=== PATIENT | female | born 1985 | race Caucasian/White ===

== ENCOUNTER 2022-05-27 00:22 | Day surgery (SDC) | payer BC, SELFPAY ==
[2022-05-27 11:28] VITALS: BP 129/83; PULSE 76; RESP 16; TEMP 36.3; O2SAT 100
--- NOTE | 2022-05-27 11:35 | PM.HPGS ---
History of Present Illness History of Present Illness Consent: Risks, benefits, and alternatives have been discussed and questions answered. Patient agrees to proceed with procedure. Chief complaint: dysphagia Narrative: Marissa Herrera is a 36 year old female with dysphagia for 2 years, sometimes choking sensation and eating small pieces, never had EGD. PPI did not help Review of Systems Constitutional: Constitutional: Denies headache(s) and Denies weakness Eyes: Eyes: Denies blurry vision ENT: Reports Normal hearing present, Denies headache(s) and Denies neck pain Cardiovascular: Cardiovascular: Denies chest pain and Denies dyspnea Respiratory: Respiratory: Denies dyspnea Gastrointestinal: Gastrointestinal: Reports no additional gastrointestinal complaints Genitourinary: Genitourinary: Denies dysuria Musculoskeletal: Musculoskeletal: Denies neck pain Integumentary/Breasts: Skin/Breast: Denies dry skin Neurologic: Reports Normal hearing present, Denies headache(s) and Denies weakness Psychiatric: Psychiatric: Denies anxiety Endocrine: Endocrine: Denies change in body appearance Hematologic/Lymphatic: Hematologic/Lymphatic: Denies easy bleeding Allergic/Immunologic: Allergic/Immunologic: Denies urticaria PMFSH Family History Family History Father Diabetes mellitus Mother Cancer Depression Anxiety Social History Social History Smoking status: Former smoker Tobacco type: cigarettes Alcohol intake: current Drinks per week: 1 Alcohol use details: glass of wine at night Substance use: current Substance use type: marijuana Living arrangements: with family Spiritual care concerns: No Meds Home Medications and Allergies Home Medications Medication Instructions Recorded Confirmed Type bupropion HCl 300 mg 24 hr tablet, 300 mg PO QAM #90 tabs 03/11/22 05/27/22 Rx extended release gabapentin 100 mg capsule 100 mg PO .COMPLEX #90 caps 03/11/22 05/27/22 Rx Allergies Allergy/AdvReac Type Severity Reaction Status Date / Time prednisone AdvReac Other Verified 05/27/22 11:27 Vital Signs Vital Signs - 24 hr 05/27/22 11:28 Temperature 97.3 F L Pulse Rate 76 Respiratory Rate 16 Blood Pressure 129/83 Pulse Oximetry 100 Oxygen Delivery Room Air Exam Const: General: comfortable and no acute distress HENMT: Face/Nose/Sinus: Normal nares present Eyes: General: appearance normal, both eyes and all related structures Neck: Neck: no JVD Resp: Auscultation: clear to auscultation bilaterally Cardio: Rate: regular rate Rhythm: regular rhythm GI: Inspection: non-distended GI Palp: Yes Soft to palpation Skin: General skin exam: normal color Neuro: General: gait normal Speech: normal speech Extrem: General: normal to inspection Psych: Mental Status: mental status grossly normal Assessment and Plan Assessment and plan (1) Dysphagia: Code(s): R13.10 - Dysphagia, unspecified Status: Acute Assessment and Plan: egd with bx
[2022-05-27] MEDS: LACTATED RINGERS 1,000 ML 150 ML IV CONT (11:37)
--- NOTE | 2022-05-27 11:53 | WPDANESEPPF ---
Anes - Initial Pre Proc Eval Procedure: Operation Date: 05/27/22 12:30 Proposed Procedures p Esophagogastroduodenoscopy EGD - Eladio Eaton MD Date/Time: 05/27/22 11:53 Surgeon: Eladio Eaton MD Pre Op Diagnosis: dysphagia Patient Data Age: 36 Gender: F Height: 1.7 m Weight: 66.8 kg Last Vital Signs Temp 97.3 F L 05/27/22 11:28 Pulse 76 05/27/22 11:28 Resp 16 05/27/22 11:28 BP 129/83 05/27/22 11:28 Pulse Ox 100 05/27/22 11:28 O2 Del Method Room Air 05/27/22 11:28 Allergies Allergy/AdvReac Type Severity Reaction Status Date / Time prednisone AdvReac Other Verified 05/27/22 11:27 Home Medications Medication Instructions Recorded Confirmed Type bupropion HCl 300 mg 24 hr tablet, 300 mg PO QAM #90 tabs 03/11/22 05/27/22 Rx extended release gabapentin 100 mg capsule 100 mg PO .COMPLEX #90 caps 03/11/22 05/27/22 Rx Patient hx anesthesia problems: none Family hx anesthesia problems: none Results Review: All pre-operative results and documents have been reviewed as part of the pre-operative evaluation. [facility] Family History Family History Father Diabetes mellitus Mother Cancer Depression Anxiety Social History Social History Smoking status: Former smoker Tobacco type: cigarettes Alcohol intake: current Drinks per week: 1 Alcohol use details: glass of wine at night Substance use: current Substance use type: marijuana Living arrangements: with family Spiritual care concerns: No Anes - Eval Final PreProcedure Day of Procedure 05/27/22 11:53 Patient weight: normal Heart: regular rate and rhythm Lungs: clear to auscultation Airway: Mallampati scale class II Neurological: alert and oriented Last oral intake: >/= 8 hours ASA classification: II Emergent: no Anesthetic plan: proceed Anesthesia type and monitoring: general GIVS and standard monitoring Results Review: All pre-operative results and documents have been reviewed as part of the pre-operative evaluation. Informed Consent: The patient's anesthetic plan and its attendant risks and benefits were discussed with the patient/family/POA. Questions were solicited and answers provided to the satisfaction of the patient/family/POA.
[2022-05-27 12:13] VITALS: BP 115/89; PULSE 92; RESP 25; O2SAT 100
[2022-05-27 12:23] VITALS: BP 121/86; PULSE 82; RESP 17; O2SAT 97
[2022-05-27 12:33] VITALS: BP 132/72; PULSE 85; RESP 18; O2SAT 98
== END 2022-05-27 12:42 | disposition home or self-care (01) ==
PROVIDERS: PCP Emergency Medicine; Visit Provider Internal Medicine Gastroenterology
PROC: 0DJ08ZZ Inspection of Upper Intestinal Tract, Via Natural or Artificial Opening Endoscopic (ICD-10-PCS; CPT 43235; principal; 2022-05-27 12:30)
DX: R13.10 Dysphagia, unspecified (principal); K22.2 Esophageal obstruction; K44.9 Diaphragmatic hernia without obstruction or gangrene; Z87.891 Personal history of nicotine dependence
CPT/HCPCS: 43239; 43249; 88305; C1726; J2704; J7120

== ENCOUNTER 2022-08-15 12:37 | Emergency (ER) | payer BC, SELFPAY ==
--- NOTE | ~2022-08-15 | CT_ITS ---
EXAMINATION: CT facial bones wo con DATE: 08/15/2022 18:07 INDICATION: head injury . TECHNIQUE: Computed tomography (CT) of the facial bones and maxillofacial region was performed withou t intravenous contrast. Automated exposure control and iterative reconstruction technique were employ ed. The dose-length product was 275.12 mGy-cm. COMPARISON: None. FINDINGS: Soft Tissues: Soft tissue swelling over the left cheek. Facial bones: No acute fracture. No lytic or blastic process. Eyes: The globes are intact. The soft tissue planes of the orbits are maintained. Paranasal Sinuses: The visualized aerated spaces are clear. Foreign Bodies: No radiopaque foreign bodies. Other Findings: None. IMPRESSION: No evidence of acute facial bone fracture. Reviewed, dictated and finalized at location K. MENT REVIEWER
--- NOTE | ~2022-08-15 | CT_ITS ---
EXAMINATION: CT brain wo con DATE: 08/15/2022 18:07 INDICATION: head injury . TECHNIQUE: Computed tomography (CT) of the head was performed without intravenous contrast. The mA wa s adjusted according to patient size. Iterative reconstruction technique was employed. The dose-lengt h product was 605.33 mGy-cm. COMPARISON: None. FINDINGS: No acute intracranial hemorrhage or extra-axial fluid collection. No hydrocephalus, mass, or herniation. No acute ischemic infarct. Unremarkable dural venous sinus attenuation. No acute osseous abnormality. The aerated spaces are clear. IMPRESSION: No acute intracranial process. Reviewed, dictated and finalized at location K. N WINDER
[2022-08-15 12:43] VITALS: BP 149/71; PULSE 75; RESP 16; TEMP 36.7; O2SAT 100
--- NOTE | 2022-08-15 17:51 | ED.HEATRA ---
HPI - Head Injury General Chief complaint: Head Injury Stated complaint: facial injury Time Seen by Provider: 08/15/22 17:41 Source: patient Mode of arrival: ambulatory Limitations: no limitations History of Present Illness HPI Narrative: This is a 37 year old female that presents to the ER after a head injury yesterday with lightheadedness. Reports she was cleaning out her closet and a safe fell and hit her in the face. She believes she lost consciousness. Reports today she has been experiencing headaches and lightheadedness. Reports bruising to the left lower eyelid. Denies vision changes, vomiting, numbness or weakness. Related Data Allergies Allergy/AdvReac Type Severity Reaction Status Date / Time prednisone AdvReac Other Verified 08/05/22 09:30 Review of Systems Review of Systems: CONSTITUTIONAL: Denies fever EYES: Denies visual changes GASTROINTESTINAL: Denies vomiting NEUROLOGIC: Reports headache. Denies numbness, or weakness. All systems reviewed & are unremarkable except as noted in HPI and below PMFSH Past Medical History Medical History Eosinophilic esophagitis Esophageal ring Family History Family History Father Diabetes mellitus Mother Cancer Depression Anxiety Social History Social History (Updated 08/05/22 @ 09:31 by NANCY Blake) Smoking status: Former smoker Tobacco type: cigarettes Alcohol intake: current Drinks per week: 1 Alcohol use details: glass of wine at night Substance use: current Substance use type: marijuana Lack of Transportation: No Lack of Food: Never True Current Housing: I Have Housing Concerned About Future Housing: No Difficulty Paying Gas/Electric Bills: No Difficulty Paying for Meds: No Currently Unemployed: No Education: Associate Degree Difficulty w/ Childcare or Family Care: No Living arrangements: with family Occupation/Education: occupation Spiritual care concerns: No Exam Narrative: GENERAL: Well-appearing, well-nourished, and in no acute distress. HEAD: Normocephalic. Mild bruising noted below the left eye EYES: PERRLA and EOMI. ENT: Nares clear, no rhinorrhea or epistaxis. Mucous membranes moist. Oropharynx without tonsillar hypertrophy exudate or other lesions. Bilateral TMs pearly loyola non-bulging NECK: Supple. No adenopathy or masses. No midline spinal tenderness CHEST: Clear to auscultation. No respiratory distress. No wheezes rales or rhonchi HEART: Regular rate and rhythm. No murmur heard. Normal peripheral pulses. EXTREMITIES: Normal range of motion. No edema. Strength equal in bilateral upper extremities SKIN: Warm, dry, no rash. NEURO: No focal deficits. Alert and oriented x3. Cranial nerves II through XII grossly intact. Normal gait PSYCH: Normal mood and affect Course Course Emergency Course: Patient updated on workup and agrees with plan of care Vital Signs Vital signs: Vital Signs Temperature 98.0 F 08/15/22 12:43 Pulse Rate 75 08/15/22 12:43 Respiratory Rate 16 08/15/22 12:43 Blood Pressure 149/71 H 08/15/22 12:43 Pulse Oximetry 100 08/15/22 12:43 Oxygen Delivery Room Air 08/15/22 12:43 Temperature 98.0 F 08/15/22 12:43 Pulse Rate 75 08/15/22 12:43 Respiratory Rate 16 08/15/22 12:43 Blood Pressure 149/71 H 08/15/22 12:43 Pulse Oximetry 100 08/15/22 12:43 Oxygen Delivery Room Air 08/15/22 12:43 MDM - Head Injury MDM Narrative Medical decision making narrative: Patient presents to the emergency department after a head injury yesterday with lightheadedness and headaches. Patient is neurologically intact. CT scan of the brain and facial bones without acute findings. She was instructed on care of concussion. She is to follow-up with her primary care provider. She was given warnings to return to the ER Differential Diagnosis
[2022-08-15 18:36] VITALS: BP 125/61; PULSE 87; RESP 16; O2SAT 100
== END 2022-08-15 18:43 | disposition home or self-care (01) ==
LOC: ANHED 18:40
PROVIDERS: Emergency Provider Physician Assistant; PCP Emergency Medicine
DX: S00.83XA Contusion of other part of head, initial encounter (principal); Z87.891 Personal history of nicotine dependence; W20.8XXA Other cause of strike by thrown, projected or falling object, initial encounter
CPT/HCPCS: 70450; 70486; 99284

== ENCOUNTER 2022-11-28 12:47 | Outpatient (CLI) | payer BC, SELFPAY ==
--- NOTE | ~2022-11-28 | MR_ITS ---
MRI of the cervical spine Clinical History: Radiculopathy Technique: Axial T2-weighted and gradient images, and sagittal T1-weighted, T2-weighted, and STIR samantha ges were acquired. Findings: There is no fracture or subluxation of the cervical spine. Vertebral bodies maintain normal height and alignment. No suspicious bone marrow signal abnormality seen. Mild diffuse T1 hypointensi ty could reflect underlying anemia. At C2-C3, there is no disc bulge or herniation. No spinal canal stenosis, cord compression, or neural foraminal narrowing. At C3-C4, there is no disc bulge or herniation. No spinal canal stenosis, cord compression, or neural foraminal narrowing. At C4-C5, there is no significant disc bulge or herniation. No spinal canal stenosis, cord compressio n, or neural foraminal narrowing. At C5-C6, there is minimal disc bulge. No spinal canal stenosis or cord compression. There is probabl e minimal bilateral neural foraminal narrowing. At C6-C7, there is no significant disc bulge or herniation. No spinal canal stenosis, cord compressio n, or neural foraminal narrowing. No abnormal signal seen in the spinal cord. Paravertebral soft tissues are unremarkable. Impression: Minimal degenerative spondylosis, as detailed above. Reviewed, dictated and finalized at location . Impression: Minimal degenerative spondylosis, as detailed above.
--- NOTE | ~2022-11-28 | MR_ITS ---
MRI of the brain and internal auditory canals Clinical History: Dizziness, tinnitus, headache Technique: Axial and sagittal T1-weighted images were acquired. These were followed by axial T2-weigh jodie, diffusion weighted, gradient, and FLAIR images. Coronal thin cut T1-weighted and T2-weighted samantha ges were acquired through the internal auditory canals. Axial thin cut T1-weighted images were also a cquired through the internal auditory canals. Findings: There is no abnormal signal in the brain parenchyma. No acute infarct, intracranial hemorrh age, or mass lesion identified. Ventricles and subarachnoid spaces are unremarkable. Orbits are unremarkable. Paranasal sinuses and m astoid air cells are clear. 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 Remaining intracranial flow v oids appear intact. Sagittal midline structures are intact. No abnormal mass lesion appreciated at the internal auditory canals or cerebellopontine angle regions . IMPRESSION: No significant abnormality identified. Postcontrast imaging would be more sensitive for small acousti c neuroma, and can be pursued as indicated. Reviewed, dictated and finalized at location M. IMPRESSION: No significant abnormality identified. Postcontrast imaging would be more sensi tive for small acoustic neuroma, and can be pursued as indicated.
== END 2022-11-28 12:48 ==
LOC: GOSHIMG 12:48
PROVIDERS: PCP Nurse Practitioner Family; Visit Provider Nurse Practitioner Family
DX: R51.9 Headache, unspecified (principal); R42 Dizziness and giddiness; H93.13 Tinnitus, bilateral; M47.22 Other spondylosis with radiculopathy, cervical region
CPT/HCPCS: 70551; 72141

== ENCOUNTER 2023-01-13 15:59 | Outpatient (CLI) | payer BC, SELFPAY | END 2023-01-13 16:00 | disposition home or self-care (01) | LOC: ANHGOSHLAB 16:00 | PROVIDERS: PCP Family Medicine; Visit Provider Nurse Practitioner Family | DX: N92.6 Irregular menstruation, unspecified (principal) | CPT/HCPCS: 36415; 84702 ==

== ENCOUNTER 2023-01-25 12:42 | Outpatient (CLI) | payer BC, SELFPAY ==
--- NOTE | ~2023-01-25 | US_ITS ---
EXAMINATION: US OB <= 14 weeks fetus DATE: 01/25/2023 13:16 INDICATION: Establish dating of during first trimester TECHNIQUE: Real-time pelvic ultrasound utilizing both a transvaginal and transabdominal probe was pe rformed. The interpreting radiologist was not present for the study. COMPARISON: None. FINDINGS: The uterus measures 9.2 x 6.3 x 5.3 cm. There is an intrauterine gestational sac. A yolk sac and fet al pole are identified. The crown rump length is measured by the technologist is 1.5 cm, which correl ates with an estimated gestational age of 7 weeks and 6 days. This measurement does not include what appears to represent the head but which is indicated CT [place] sac by the starch treating assistant. Remeasurem ent of the crown-rump length including what is likely the head yields a crown-rump length of 22 mm which correlates with an estimated gestational age of 8 weeks and 6 days. heart motion is i dentified measuring 171 beats per minute (bpm) by M-mode Doppler. The left and right ovaries are not visualized. IMPRESSION: 1. Single living fetus with heart rate of 171. 2. Gestational age by ultrasound of 8 weeks 6 day(s) with ultrasound estimated date of delivery (YARED ) of 08/31/2023. See discussion above regarding the crown-rump length measurement. Could consider repe at imaging for more definitive assessment. Reviewed, dictated and finalized at location A. IMPRESSION: 1. Single living fetus with heart rate of 171. 2. Gestational age by ultrasound of 8 weeks 6 day(s) with ultrasound estimated date of delivery (YARED) of 08/31/2023. See discussion above regarding the crown- rump length measurement. Could consider repeat imaging for more definitive asse ssment.
== END 2023-01-25 12:43 ==
LOC: GOSHIMG 12:43
PROVIDERS: PCP Nurse Practitioner Family; Visit Provider Student in an Organized Health Care Education/Training Program
DX: N94.89 Other specified conditions associated with female genital organs and menstrual cycle (principal)
CPT/HCPCS: 76801

== ENCOUNTER 2023-01-25 15:44 | Outpatient (CLI) | payer BC, SELFPAY ==
[2023-01-25 19:27] LABS: Basophils Absolute Auto 0.1 K/mm3 (0.0-0.1); Basophils Percent Auto 0.5 % (0.2-1.2); Eosinophils Absolute Auto 0.1 K/mm3 (0-0.3); Eosinophils Percent Auto 0.4 % (0-4.4); Hematocrit 39.8 % (37.0-47.0); Hemoglobin 13.4 g/dL (12.0-15.0); Immature Granulocyte Absolute 0.07 K/mm3 (0.00-0.031); Immature Granulocyte Percent A 0.5 % (0-0.5); Lymphocytes Absolute Auto 2.86 K/mm3 (0.9-3.2); Lymphocytes Percent Auto 20.8 % (18.3-44.2); Mean Corpuscular HGB Conc 33.7 g/dl (32-36); Mean Corpuscular Hemoglobin 29.9 pg (26-34); Mean Corpuscular Volume 88.8 fl (80-100); Monocytes Absolute Auto 0.6 K/mm3 (0.1-0.6); Monocytes Percent Auto 4.4 % (2.6-8.5); Neutrophils Absolute Auto 10.1 K/mm3 (1.3-6.7); Neutrophils Percent Auto 73.4 % (45.5-73.1); Platelet Count Result 361 k/mm3 (150-375); Red Blood Count 4.48 M/mm3 (4.2-5.4); Red Cell Distribution Width 11.9 % (11.5-14.5); White Blood Count 13.7 K/mm3 (4.5-10.0)
[2023-01-25 20:42] LABS: Hepatitis B Surface Antigen Negative (Negative)
[2023-01-25 21:15] LABS: HIV 1/2 Ab P24 Ag Result Negative (Negative)
[2023-01-26 09:16] LABS: Rapid Plasma Reagin Non-Reactive (NonReactive)
== END 2023-01-25 15:45 | disposition home or self-care (01) ==
PROVIDERS: PCP Nurse Practitioner Family; Visit Provider Student in an Organized Health Care Education/Training Program
DX: N94.89 Other specified conditions associated with female genital organs and menstrual cycle (principal)
CPT/HCPCS: 36415; 84702; 85025; 86592; 86644; 86703; 86747; 86762; 86787; 86850; 86900; 86901; 87077; 87086; 87186; 87340; G0432

== ENCOUNTER 2023-06-17 11:01 | Outpatient (CLI) | payer BC, SELFPAY ==
[2023-06-17 12:19] LABS: Basophils Absolute Auto 0.1 K/mm3 (0.0-0.1); Basophils Percent Auto 0.4 % (0.2-1.2); Eosinophils Absolute Auto 0.1 K/mm3 (0-0.3); Eosinophils Percent Auto 0.7 % (0-4.4); Hematocrit 37.2 % (37.0-47.0); Hemoglobin 12.3 g/dL (12.0-15.0); Immature Granulocyte Absolute 0.26 K/mm3 (0.00-0.031); Immature Granulocyte Percent A 2.1 % (0-0.5); Lymphocytes Absolute Auto 1.84 K/mm3 (0.9-3.2); Mean Corpuscular HGB Conc 33.1 g/dl (32-36); Mean Corpuscular Volume 87.7 fl (80-100); Mean Platelet Volume 8.7 fl (7.4-10.4); Monocytes Absolute Auto 0.5 K/mm3 (0.1-0.6); Monocytes Percent Auto 4.1 % (2.6-8.5); Neutrophils Absolute Auto 9.5 K/mm3 (1.3-6.7); Neutrophils Percent Auto 77.7 % (45.5-73.1); Platelet Count Result 255 k/mm3 (150-375); Red Blood Count 4.24 M/mm3 (4.2-5.4); White Blood Count 12.2 K/mm3 (4.5-10.0)
[2023-06-17 12:29] LABS: Glucose 1 Hour PP 50gm Dose 139 mg/dL
[2023-06-17 13:08] LABS: HIV 1/2 Ab P24 Ag Result Negative (Negative)
== END 2023-06-17 11:02 | disposition home or self-care (01) ==
LOC: ANHLAB 11:04
PROVIDERS: PCP Nurse Practitioner Family; Visit Provider Student in an Organized Health Care Education/Training Program
DX: Z34.90 Encounter for supervision of normal pregnancy, unspecified, unspecified trimester (principal); Z3A.00 Weeks of gestation of pregnancy not specified
CPT/HCPCS: 36415; 82947; 85025; 86703; G0432

== ENCOUNTER 2023-06-28 08:19 | Outpatient (CLI) | payer BC, SELFPAY ==
[2023-06-28 08:48] LABS: Glucose Fasting Gestational 100 mg/dL (>/=95)
[2023-06-28 10:36] LABS: Glucose 1 Hour Gest 143 mg/dL (>/=180)
[2023-06-28 11:19] LABS: Glucose 2 Hour Gest 148 mg/dL (>/= 155)
[2023-06-28 12:17] LABS: Glucose 3 Hour Gest 108 mg/dL (>/=140)
== END 2023-06-28 08:20 | disposition home or self-care (01) ==
LOC: ANHLAB 08:21
PROVIDERS: PCP Nurse Practitioner Family; Visit Provider Student in an Organized Health Care Education/Training Program
DX: O99.810 Abnormal glucose complicating pregnancy (principal); Z3A.00 Weeks of gestation of pregnancy not specified
CPT/HCPCS: 36415; 82951; 82952

== ENCOUNTER 2023-07-16 17:21 | Observation (INO) | payer BC, SELFPAY ==
[2023-07-16 17:08] VITALS: BP 134/92; PULSE 114; RESP 15; TEMP 36.4; O2SAT 100
--- NOTE | 2023-07-16 17:20 | ED.FALL ---
HPI - Fall General Chief Complaint: Fall Stated Complaint: 7 months preg - fall Time Seen by Provider: 07/16/23 17:09 History of Present Illness HPI Narrative: 38-year-old female presenting to the emergency department for evaluation after having a ground level fall. Patient reports she is approximately 7 months and follows up with Dr. Oglesby. Patient reports approximately 30 minutes prior to arrival she was crossing the street when she tripped over a curb and landed on her knees hands and on her abdomen. Patient felt that she was having decreased movement. Shortly after arrival to the emergency department patient had a bedside ultrasound showing active movement. Patient denies any leaking of vaginal fluids and denies any vaginal bleeding. Patient denies striking head denies any loss of consciousness Related Data Home Medications Medication Instructions Recorded Confirmed escitalopram oxalate 5 mg tablet 5 mg PO 02/21/23 07/12/23 escitalopram oxalate 10 mg tablet 10 mg PO DAILY 04/19/23 07/12/23 aspirin 81 mg tablet,delayed 81 mg PO DAILY 05/17/23 07/12/23 release (Adult Low Dose Aspirin) vits no.126-ferrous fum tablet PO 05/17/23 07/12/23 28 mg iron-folic acid 800 mcg tablet (Classic ) Allergies Allergy/AdvReac Type Severity Reaction Status Date / Time prednisone AdvReac Mild Didn't Verified 06/14/23 14:01 like taking it Review of Systems Review of Systems: All systems reviewed & are unremarkable except as noted in HPI and below PMFSH Past Medical History Medical History (Updated 07/16/23 @ 17:28 by Joaquin Leigh MD) Abnormal glucose tolerance in Eosinophilic esophagitis Esophageal ring Suppression of menses Family History Family History Father Diabetes mellitus Mother Cancer Depression Anxiety Social History Social History Social History: No current alcohol intake or substance use since test resulted positive 01/13/23 Years smoked: 8 Smoking status: Former smoker Tobacco type: cigarettes Alcohol intake: current Drinks per week: 1 Alcohol use details: glass of wine at night Substance use: current Substance use type: marijuana Lack of Transportation: No Lack of Food: Never True Current Housing: I Have Housing Concerned About Future Housing: No Difficulty Paying Gas/Electric Bills: No Difficulty Paying for Meds: No Currently Unemployed: No Education: Associate Degree Difficulty w/ Childcare or Family Care: No Living arrangements: with family Occupation/Education: occupation Spiritual care concerns: No Exam Narrative: APPEARANCE: Well appearing, no pain, no distress, well-nourished. HEAD: normocephalic, atraumatic. EYES: PERRLA/EOMI, conjunctivae clear. NOSE: Normal no drainage EARS:TMS clear with good light reflex. THROAT: Pharynx clear, no exudate. NECK: Supple. No adenopathy, no masses. RESPIRATORY: Airway patent, respirations nonlabored. Clear to auscultation bilaterally, no rales, rhonchi, wheezing. CARDIOVASCULAR: Regular rate and rhythm without murmurs rubs or gallops. ABDOMINAL: Gravid abdomen nontender MUSCULOSKELETAL: Moves all extremities. Strength/ROM intact, No edema, No calf tenderness. NEURO: Alert. Cranial nerves II through XII intact. Grossly intact SKIN: Abrasions to hands Course Course Emergency Course: 38-year-old female that is 7 months presenting to the emergency department for evaluation after having a ground level fall. Bedside ultrasound did show active movement. Patient did have abrasions to knees and hands but is not concerned about fractures to hands or knees. Patient will be transferred to OB for further evaluation of the fetus. Disposition: Still patient Clinical condition: Stable Clinical impression: Kamaljit
[2023-07-16 18:00] VITALS: BP 117/64; PULSE 97
[2023-07-16 18:02] VITALS: BP 117/64; PULSE 97
[2023-07-16 18:14] VITALS: BMI 30.4
--- NOTE | 2023-07-16 18:15 | OBADM ---
This patient, Marissa Herrera, admitted to the OB room [facility] Post [facility] for observation. Patient/family oriented to hospital policies and general routines including ID bracelet, bed and alarms, visiting hours, pain management, procedures, bathroom and other care routines, personal items, smoking policy, room service/diet, and visiting hours. Patient/Family are encouraged to report perceived risks to care and to ask questions if they do not understand what they are told or what they should do.
[2023-07-16] MEDS: DEXTROSE 5%/LACTATED RINGERS 1,000 ML 999 ML IV CONT (18:23)
--- NOTE | 2023-07-16 20:27 | PC.NURSE ---
IV from the ER removed with tip intact at this time.
--- NOTE | 2023-07-16 20:31 | PC.NURSE ---
[address] Morris at this time. Orders recieved to DC this patient at this time. Reported on Maternal and status at this time.
--- NOTE | 2023-07-17 08:12 | PM.OBTRLD ---
OB - Triage/Final Diagnosis Visit Information Reason for evaluation: threatened labor Comments/Additional reasons for admission: I have assessed the risk for this patient, Marissa Bauer Shaishannan, and determined that she would benefit from observation care. Evaluation Vital signs: Vital Signs - 24 hr 07/16/23 17:08 07/16/23 18:00 07/16/23 18:02 Temperature 97.5 F L Pulse Rate 114 H 97 97 Respiratory Rate 15 Blood Pressure 134/92 H 117/64 117/64 Pulse Oximetry 100 Oxygen Delivery Room Air
--- NOTE | 2023-07-17 08:18 | PCCCNOTE ---
Recvd notification that pt. scored high on OB Substance Abuse Screening. Pt. discharged prior to CC seeing her.
== END 2023-07-16 20:27 | disposition left against medical advice (07) ==
PROVIDERS: Admitting Provider Obstetrics & Gynecology; PCP Nurse Practitioner Family; Visit Provider Obstetrics & Gynecology
DX: O47.03 False labor before 37 completed weeks of gestation, third trimester (principal); O9A.213 Injury, poisoning and certain other consequences of external causes complicating pregnancy, third trimester; S80.212A Abrasion, left knee, initial encounter; S80.211A Abrasion, right knee, initial encounter; S60.512A Abrasion of left hand, initial encounter; S60.511A Abrasion of right hand, initial encounter; W10.1XXA Fall (on)(from) sidewalk curb, initial encounter; O99.320 Drug use complicating pregnancy, unspecified trimester; F12.90 Cannabis use, unspecified, uncomplicated; Z79.82 Long term (current) use of aspirin; Z3A.33 33 weeks gestation of pregnancy; Z87.891 Personal history of nicotine dependence; Z79.899 Other long term (current) drug therapy
CPT/HCPCS: 59025; 96360; 96361; G0378; G0379; J7121

== ENCOUNTER 2023-08-17 10:31 | Outpatient (CLI) | payer OTHER, SELFPAY ==
--- NOTE | ~2023-08-17 | US_ITS ---
EXAMINATION: US OB BPP wo non-stress DATE: 08/17/2023 12:52 INDICATION: Hypertension during third trimester TECHNIQUE: Real-time pelvic ultrasound was performed. The interpreting radiologist was not present fo r the study. COMPARISON: None. FINDINGS: There is a single living fetus in vertex presentation. The placenta is anterior. heart rate is 130 beats per minute (bpm). Biophysical profile performed by the technologist: breathing (30 sec sustained breathing in 30 minutes): 2 out of 2 movement (3 gross body movements in 30 minutes): 2 out of 2 tone (one episode of jronhud-qijickhcw-uygrqqe limb movement): 2 out of 2 Amniotic fluid pocket (2 cm): 2 out of 2 Total score: 8 out of 8 IMPRESSION: 1. Single living fetus in vertex presentation. 2. Biophysical profile 8 out of 8. Reviewed, dictated and finalized at location L. K ENTRY LEVEL
[2023-08-17 11:15] VITALS: BP 123/79; PULSE 84
[2023-08-17 11:16] VITALS: BP 123/79; PULSE 83; BMI 31.0
[2023-08-17 11:30] VITALS: BP 112/82; PULSE 83
[2023-08-17 11:59] VITALS: BP 112/82; PULSE 83
[2023-08-17 12:00] VITALS: BP 120/74; PULSE 81
[2023-08-17 12:00] LABS: Basophils Absolute Auto 0.1 K/mm3 (0.0-0.1); Basophils Percent Auto 0.4 % (0.2-1.2); Eosinophils Absolute Auto 0.1 K/mm3 (0-0.3); Eosinophils Percent Auto 0.7 % (0-4.4); Hematocrit 35.8 % (37.0-47.0); Hemoglobin 11.2 g/dL (12.0-15.0); Immature Granulocyte Absolute 0.15 K/mm3 (0.00-0.031); Immature Granulocyte Percent A 1.2 % (0-0.5); Lymphocytes Absolute Auto 1.82 K/mm3 (0.9-3.2); Lymphocytes Percent Auto 14.3 % (18.3-44.2); Mean Corpuscular HGB Conc 31.3 g/dl (32-36); Mean Corpuscular Hemoglobin 27.8 pg (26-34); Mean Corpuscular Volume 88.8 fl (80-100); Mean Platelet Volume 9.4 fl (7.4-10.4); Monocytes Absolute Auto 0.8 K/mm3 (0.1-0.6); Monocytes Percent Auto 6.3 % (2.6-8.5); Neutrophils Absolute Auto 9.9 K/mm3 (1.3-6.7); Neutrophils Percent Auto 77.1 % (45.5-73.1); Platelet Count Result 240 k/mm3 (150-375); Red Blood Count 4.03 M/mm3 (4.2-5.4); Red Cell Distribution Width 13.8 % (11.5-14.5); White Blood Count 12.8 K/mm3 (4.5-10.0)
[2023-08-17 12:03] LABS: Appearance Urine Clear (Clear); Bacteria Urine 1+ /hpf; Bilirubin Urine Negative (Negative); Blood Urine Negative (Negative); Color Urine Yellow (Yellow); Glucose Urine UA Negative (Negative); Ketones Urine Negative (Negative); Leukocyte Esterase Ur 1+ LEU/UL (Negative); Nitrate Urine Negative (Negative); Non Pathogenic Casts 0-2; Protein Urine Negative (Negative); RBC Urine 0-2 /hpf (0-2); Specific Grav Ur 1.005 (1.001-1.035); Squamous Epithelial Cell Urine Few /hpf (Few); Urobilinogen Urine 0.2 mg/dL (<2.0); pH Urine 7.5 (5.0-9.0)
[2023-08-17 12:12] LABS: Alanine Aminotransferase 21 U/L (6-35); Albumin Level 3.3 g/dL (3.5-5.1); Alkaline Phosphatase 117 U/L (38-126); Anion Gap 4 mmol/L (8-16); Aspartate Amino Transferase 25 U/L (14-36); Bilirubin,Total 0.3 mg/dL (0.2-1.3); Blood Urea Nitrogen 6 mg/dL (7-17); Carbon Dioxide 25 mmol/L (22-30); Chloride 107 mmol/L (98-107); Estimated CRCL calculation 127 ml/min; Estimated Glomerular Filt Rate > 60; Glucose 83 mg/dL (65-110); Potassium 3.8 mmol/L (3.4-5.0); Sodium 136 mmol/L (137-145); Uric Acid 4.9 mg/dL (2.5-7.5)
[2023-08-17 12:14] LABS: Creatinine Urine 20.8 mg/dL; Total Protein Urine Random 16 mg/dL; Ur Ttl Prot Creatinine Ratio 0.77 mg/mg (0-0.20)
[2023-08-17 12:15] VITALS: BP 123/79; PULSE 86
[2023-08-17 12:29] LABS: Add Urine Microscopic? YES
--- NOTE | 2023-08-17 13:16 | PC.NURSE ---
Dr. Oglesby informed of lab results, reactive NST, BP's, and BPP 01/17. Order received to discharge pt to home to do a 24 hr urine collection.
== END 2023-08-17 13:46 | disposition home or self-care (01) ==
LOC: ANHOBOP 10:36 → ANHOBPP 10:36
PROVIDERS: PCP Nurse Practitioner Family; Visit Provider Obstetrics & Gynecology
DX: O13.9 Gestational [pregnancy-induced] hypertension without significant proteinuria, unspecified trimester (principal); Z3A.00 Weeks of gestation of pregnancy not specified
CPT/HCPCS: 36415; 59025; 76819; 80053; 81001; 82570; 84156; 84550; 85025; 87077; 87086; 87088; 87186; 99199

== ENCOUNTER 2023-08-18 13:20 | Outpatient (CLI) | payer OTHER, SELFPAY ==
[2023-08-18] VITALS (7 sets, daily range): BP systolic 119–141; BP diastolic 73–85; PULSE 75–96; BMI 31.1
--- NOTE | ~2023-08-18 | US_ITS ---
EXAMINATION: US OB BPP wo non-stress DATE: 08/18/2023 15:31 INDICATION: Nonreactive tracing during third trimester TECHNIQUE: Real-time pelvic ultrasound was performed. The interpreting radiologist was not present fo r the study. COMPARISON: 08/17/2023 FINDINGS: There is a single living fetus in vertex presentation. The placenta is anterior. heart rate is 154 beats per minute (bpm). Biophysical profile performed by the technologist: breathing (30 sec sustained breathing in 30 minutes): 2 out of 2 movement (3 gross body movements in 30 minutes): 2 out of 2 tone (one episode of gefspip-qelzpwekl-zihpryo limb movement): 2 out of 2 Amniotic fluid pocket (2 cm): 2 out of 2 Total score: 8 out of 8 IMPRESSION: 1. Single living fetus in vertex presentation. 2. Biophysical profile 8 out of 8. Reviewed, dictated and finalized at location B. ER
--- NOTE | 2023-08-18 14:42 | PC.NURSE ---
1440: RN called Dr. Avery to inform her of patient 1 + edema, blood pressures, VAUGHN that started a few minutes ago that she is rating a 4 out of 10, as well as patient's complaint of nausea, and nonreactive tracing with a possible deceleration. Orders for a BPP and 1 g of Tylenol for the VAUGHN.
[2023-08-18] MEDS: ACETAMINOPHEN 500 MG TABLET 1000 MG PO (14:50)
[2023-08-18 15:11] LABS: Collection Time Urine 24 HOURS
--- NOTE | 2023-08-18 15:25 | PC.NURSE ---
1520: RN called sales operations lead Dr. Avery to inform her of patient's BPP of 01/17 and her pain rep
--- NOTE | 2023-08-18 15:26 | PC.NURSE ---
1520: RN called vibration engineer OB Dr. Avery to inform her that the patient's headache is now being rated a 1 out of 10 after the Tylenol and that patient had a BPP of 8 out of 8. Orders to discharge patient home with instructions on when to return to the hospital and with Preeclampsia precautions.
[2023-08-18 15:28] LABS: Total Protein Urine Random 15 mg/dL
[2023-08-18 15:30] LABS: Creatinine Urine 39.3 mg/dL; Patient Weight 198 Lbs
[2023-08-18 15:37] LABS: Total Protein Urine 24 Hr 600 mg/24hr (28-141); Total Volume 24 Hour Urine 4000 ml
[2023-08-18 15:38] LABS: Creatinine Clearance Urine 156.9 ml/min (75-125); Specific Gravity Ur 1.015; Total Volume 24 Hour Urine 4000 ml
== END 2023-08-18 15:30 | disposition home or self-care (01) ==
LOC: ANHOBOP 13:26 → ANHOBPP 13:27
PROVIDERS: PCP Nurse Practitioner Family; Visit Provider Obstetrics & Gynecology
DX: O13.9 Gestational [pregnancy-induced] hypertension without significant proteinuria, unspecified trimester (principal); Z3A.00 Weeks of gestation of pregnancy not specified
CPT/HCPCS: 59025; 76819; 81050; 82575; 84156; 99199; A9270

== ENCOUNTER 2023-08-21 08:41 | Inpatient (IN) | payer OTHER, SELFPAY ==
[2023-08-21] VITALS (118 sets, daily range): BP systolic 71–139; BP diastolic 47–83; PULSE 72–114; TEMP 36.6–37; O2SAT 97–100; BMI 31.1
--- NOTE | 2023-08-21 08:41 | LDADM ---
This patient, Marissa Oneill, was admitted to Labor/Delivery/Recovery 102 on 08/21/23 at 08:41. Plans for labor, pain management and were discussed with patient. Patient/family oriented to hospital policies and general routines including ID bracelet, bed and alarms, visiting hours, pain management, procedures, bathroom and other care routines, personal items, smoking policy, room service/diet and guest tray routines, infant security routines, and visiting hours. Patient/Family are encouraged to report perceived risks to care and to ask questions if they do not understand what they are told or what they should do. See O[facility] for further documentation.
[2023-08-21 09:36] LABS: Basophils Absolute Auto 0.1 K/mm3 (0.0-0.1); Basophils Percent Auto 0.4 % (0.2-1.2); Eosinophils Absolute Auto 0.1 K/mm3 (0-0.3); Eosinophils Percent Auto 0.6 % (0-4.4); Hematocrit 35.7 % (37.0-47.0); Hemoglobin 11.6 g/dL (12.0-15.0); Immature Granulocyte Absolute 0.19 K/mm3 (0.00-0.031); Immature Granulocyte Percent A 1.5 % (0-0.5); Lymphocytes Absolute Auto 2.19 K/mm3 (0.9-3.2); Lymphocytes Percent Auto 16.8 % (18.3-44.2); Mean Corpuscular HGB Conc 32.5 g/dl (32-36); Mean Corpuscular Hemoglobin 28.4 pg (26-34); Mean Corpuscular Volume 87.5 fl (80-100); Mean Platelet Volume 9.5 fl (7.4-10.4); Monocytes Absolute Auto 0.8 K/mm3 (0.1-0.6); Monocytes Percent Auto 6.1 % (2.6-8.5); Neutrophils Absolute Auto 9.8 K/mm3 (1.3-6.7); Neutrophils Percent Auto 74.6 % (45.5-73.1); Platelet Count Result 246 k/mm3 (150-375); Red Blood Count 4.08 M/mm3 (4.2-5.4); Red Cell Distribution Width 13.9 % (11.5-14.5); White Blood Count 13.1 K/mm3 (4.5-10.0)
[2023-08-21 09:39] LABS: Alanine Aminotransferase 18 U/L (6-35); Albumin Level 3.2 g/dL (3.5-5.1); Alkaline Phosphatase 112 U/L (38-126); Anion Gap 5 mmol/L (8-16); Aspartate Amino Transferase 22 U/L (14-36); Bilirubin,Total 0.4 mg/dL (0.2-1.3); Blood Urea Nitrogen 6 mg/dL (7-17); Calcium 8.8 mg/dL (8.4-10.2); Carbon Dioxide 23 mmol/L (22-30); Chloride 107 mmol/L (98-107); Estimated Glomerular Filt Rate > 60; Glucose 89 mg/dL (65-110); Potassium 3.7 mmol/L (3.4-5.0); Sodium 135 mmol/L (137-145)
[2023-08-21 09:47] LABS: Uric Acid 5.8 mg/dL (2.5-7.5)
[2023-08-21] MEDS: miSOPROStol 25 MCG TABLET PO ×2 (10:37→15:04)
[2023-08-21] MEDS: LACTATED RINGERS 1,000 ML 125 ML IV CONT ×2 (11:00→19:00)
[2023-08-21] MEDS: AMPICILLIN 2 GM/NS 100 ML 2 GM/100 ML BAG IVPB (11:00)
[2023-08-21] MEDS: buPROPion HCL SR (12HR) 100 MG TABCR 200 MG PO (12:16)
[2023-08-21] MEDS: ESCITALOPRAM OXALATE 10 MG TABLET PO (12:16)
--- NOTE | 2023-08-21 12:50 | PM.IMHP ---
H&P: HPI History of Present Illness Date/Time: 08/21/23 12:50 Chief Complaint: pre-eclampsia Narrative: Marissa is a 38yo @ 38.4wks who presents to L&D for IOL. She had mildly elevated BPs last week; has been noticing random headaches (nothing persistent and no vision changes) and increase in swelling. She reports good movement. No ctx, vb, or lof. Her is complicated: - AMA; NIPT LR female - Anxiety- bupropion, lexapro - E. esophigitis- omeprazole - Neuropathy- Gabapentin - Desires permanent sterilization.? Will perform at time of , or after seen in office. - Pre-eclampsia w/o SF Review of Systems Constitutional: Constitutional: Denies chills, Denies fever(s) and Reports headache(s) Eyes: Eyes: Denies change in vision ENT: Denies headache(s) Cardiovascular: Cardiovascular: Denies chest pain and Denies dyspnea Respiratory: Respiratory: Denies dyspnea Genitourinary: Genitourinary: Denies abnormal vaginal bleeding and Denies vaginal discharge Neurologic: Denies headache(s) Psychiatric: Psychiatric: Denies anxiety and Denies depression [facility] Past Medical History Medical History Abnormal glucose tolerance in Eosinophilic esophagitis Esophageal ring Suppression of menses Family History Family History Father Diabetes mellitus Mother Cancer Depression Anxiety Social History Social History Social History: No current alcohol intake or substance use since test resulted positive 01/13/23 Years smoked: 8 Smoking status: Former smoker Tobacco type: cigarettes Alcohol intake: current Drinks per week: 1 Alcohol use details: glass of wine at night Substance use: never Substance use type: marijuana Do You Feel Safe in your Home?: Yes Lack of Transportation: No Lack of Food: Never True Current Housing: I Have Housing Concerned About Future Housing: No Difficulty Paying Gas/Electric Bills: No Difficulty Paying for Meds: No Currently Unemployed: No Education: Associate Degree Difficulty w/ Childcare or Family Care: No Living arrangements: with family Occupation/Education: occupation Spiritual care concerns: No Meds Home Medications and Allergies Home Medications Medication Instructions Recorded Confirmed Type escitalopram oxalate 5 mg tablet 5 mg PO HS 02/21/23 08/21/23 History escitalopram oxalate 10 mg tablet 10 mg PO DAILY 04/19/23 08/21/23 History aspirin 81 mg tablet,delayed 81 mg PO BID 05/17/23 08/21/23 History release (Adult Low Dose Aspirin) vits no.126-ferrous fum 1 tablet PO DAILY 05/17/23 08/21/23 History 28 mg iron-folic acid 800 mcg tablet (Classic ) bupropion HCl 200 mg tablet,12 hr 300 mg PO BID 07/16/23 08/21/23 History sustained-release cetirizine 10 mg tablet 10 mg PO DAILY PRN allergies 07/16/23 08/21/23 History gabapentin 300 mg capsule 300 mg PO BID PRN Pain 07/16/23 08/21/23 History omeprazole 40 mg capsule,delayed 40 mg PO DAILY 08/17/23 08/21/23 History release Allergies Allergy/AdvReac Type Severity Reaction Status Date / Time prednisone AdvReac Mild Didn't Verified 08/02/23 15:43 like taking it, makes her angry Vital Signs Vital Signs - 24 hr 08/21/23 09:22 08/21/23 09:30 08/21/23 09:45 Temperature Pulse Rate 90 86 88 Blood Pressure 130/75 134/75 124/83 Oxygen Delivery 08/21/23 10:00 08/21/23 10:14 08/21/23 10:15 Temperature 98.6 F Pulse Rate 101 H 101 H Blood Pressure 124/80 138/76 Oxygen Delivery 08/21/23 10:30 08/21/23 10:45 08/21/23 11:00 Temperature Pulse Rate 98 89 95 Blood Pressure 131/73 130/72 127/74 Oxygen Delivery 08/21/23 11:15 08/21/23 11:30 08/21/23 11:45 Temperature P
--- NOTE | 2023-08-21 13:06 | WPDANESEPP ---
Anes - Eval Pre Procedure Procedure: labor epidural Date/Time: 08/21/23 13:06 Preop Diagnosis: labor pain Pre Op Diagnosis: Induction of Labor Patient Data Age: 38 Gender: F Height: 1.7 m Weight: 90 kg Last Vital Signs Temp 37.0 C 08/21/23 10:14 Pulse 88 08/21/23 13:00 BP 118/64 08/21/23 13:00 O2 Del Method Room Air 08/21/23 10:42 Allergies Allergy/AdvReac Type Severity Reaction Status Date / Time prednisone AdvReac Mild Didn't Verified 08/02/23 15:43 like taking it, makes her angry Home Medications Medication Instructions Recorded Confirmed Type escitalopram oxalate 5 mg tablet 5 mg PO HS 02/21/23 08/21/23 History escitalopram oxalate 10 mg tablet 10 mg PO DAILY 04/19/23 08/21/23 History aspirin 81 mg tablet,delayed 81 mg PO BID 05/17/23 08/21/23 History release (Adult Low Dose Aspirin) vits no.126-ferrous fum 1 tablet PO DAILY 05/17/23 08/21/23 History 28 mg iron-folic acid 800 mcg tablet (Classic ) bupropion HCl 200 mg tablet,12 hr 300 mg PO BID 07/16/23 08/21/23 History sustained-release cetirizine 10 mg tablet 10 mg PO DAILY PRN allergies 07/16/23 08/21/23 History gabapentin 300 mg capsule 300 mg PO BID PRN Pain 07/16/23 08/21/23 History omeprazole 40 mg capsule,delayed 40 mg PO DAILY 08/17/23 08/21/23 History release Laboratory Tests 08/21/23 09:07 WBC 13.1 H K/mm3 (4.5-10.0) RBC 4.08 L M/mm3 (4.2-5.4) Hgb 11.6 L g/dL (12.0-15.0) Hct 35.7 L % (37.0-47.0) MCV 87.5 fl (80-100) MCH 28.4 pg (26-34) MCHC 32.5 g/dl (32-36) RDW 13.9 % (11.5-14.5) Plt Count 246 k/mm3 (150-375) MPV 9.5 fl (7.4-10.4) Immature Gran % (Auto) 1.5 H % (0-0.5) Neut % (Auto) 74.6 H % (45.5-73.1) Lymph % (Auto) 16.8 L % (18.3-44.2) [place] % (Auto) 6.1 % (2.6-8.5) Eos % (Auto) 0.6 % (0-4.4) Baso % (Auto) 0.4 % (0.2-1.2) Lymph # (Auto) 2.19 K/mm3 (0.9-3.2) [place] # (Auto) 0.8 H K/mm3 (0.1-0.6) Eos # (Auto) 0.1 K/mm3 (0-0.3) Baso # (Auto) 0.1 K/mm3 (0.0-0.1) Abs Immat Gran (auto) 0.19 H K/mm3 (0.00-0.031) Absolute Neuts (auto) 9.8 H K/mm3 (1.3-6.7) Absolute Nucleated RBC 0.0 K/mm3 (0.0-0.012) Nucleated RBC % 0.0 % (0.0-0.2) Sodium 135 L mmol/L (137-145) Potassium 3.7 mmol/L (3.4-5.0) Chloride 107 mmol/L (98-107) Carbon Dioxide 23 mmol/L (22-30) Anion Gap 5 L mmol/L (8-16) BUN 6 L mg/dL (7-17) Creatinine 0.70 mg/dL (0.7-1.0) Estim Creat Clear Calc Not Reportable Estimated GFR > 60 (59 - ) Glucose 89 mg/dL (65-110) Uric Acid 5.8 mg/dL (2.5-7.5) Calcium 8.8 mg/dL (8.4-10.2) Total Bilirubin 0.4 mg/dL (0.2-1.3) AST 22 U/L (14-36) ALT 18 U/L (6-35) Alkaline Phosphatase 112 U/L (38-126) Total Protein 6.0 L g/dL (6.3-8.2) Albumin 3.2 L g/dL (3.5-5.1) RPR Pending Blood Type O Positive Antibody Screen Negative Patient hx anesthesia problems: none Family hx anesthesia problems: none Results Review: All pre-operative results and documents have been reviewed as part of the pre-operative evaluation. [facility] Past Medical History Medical History Abnormal glucose tolerance in Eosinophilic esophagitis Esophageal ring Suppression of menses Family History Family History Father Diabetes mellitus Mother Cancer Depression Anxiety Social History Social History Social History: No current alcohol intake or substance use since test resulted positive 01/13/23 Years smoked: 8 Smoking status: Former smoker Tobacco type: cigarettes Alcohol intake: current Drinks per week: 1 Alcohol use details: gl
[2023-08-21] MEDS: ONDANSETRON INJ 4 MG/2 ML VIAL IV PUSH (13:16)
[2023-08-21] MEDS: SULFAMETHOXAZOLE/TRIMETHOPRIM 800/160 MG DS TABLET 1 TAB PO (13:50)
[2023-08-21] MEDS: AMPICILLIN 1 GM/NS 50 ML 1 GM/50 ML BAG IVPB ×3 (15:00→23:00)
[2023-08-21 15:53] LABS: Rapid Plasma Reagin Non-Reactive (NonReactive)
--- NOTE | 2023-08-21 17:27 | PM.OBPNLAB ---
Pain Control Date/time seen: 08/21/23 17:27 Pain control: tolerating well Comments: requesting epidural Pelvic Exam Dilation (cm): 3 Effacement (%): 50 station: -2 Amniotic membrane status: Ruptured (AROM, clear 1725) Contractions Monitor mode: External Contraction frequency: 3 Status status: Category l Assessment and Plan Assessment: induction ongoing Plan: continuous present management Comments: - start high dose pitocin at 1900
[2023-08-21] MEDS: OXYTOCIN 30 UNITS/NS 500 ML 30 UNITS/500 ML BAG 6 UNITS IV CONT (20:09)
--- NOTE | 2023-08-21 21:44 | PM.OBPNLAB ---
Pain Control Date/time seen: 08/21/23 21:44 Pain control: epidural Pelvic Exam Dilation (cm): 4 (.5) Effacement (%): 80 station: -2 Amniotic membrane status: Ruptured (AROM, clear 1725) Contractions Monitor mode: Internal Contraction frequency: 3 Status status: Category l Assessment and Plan Pitocin rate (mU/min): 6 Assessment: induction ongoing Plan: continuous present management
[2023-08-22] VITALS (73 sets, daily range): BP systolic 106–137; BP diastolic 56–107; PULSE 52–151; RESP 16–18; TEMP 36.6–37.3; O2SAT 73–100
[2023-08-22] MEDS: buPROPion HCL SR (12HR) 100 MG TABCR 200 MG PO ×2 (00:21→14:03)
[2023-08-22] MEDS: SULFAMETHOXAZOLE/TRIMETHOPRIM 800/160 MG DS TABLET 1 TAB PO ×2 (02:08→14:03)
[2023-08-22] MEDS: OXYTOCIN 30 UNITS/NS 500 ML 30 UNITS/500 ML BAG 999 UNITS IV CONT (03:00)
--- NOTE | 2023-08-22 03:14 | PM.OBPRVD ---
OB - Vaginal Delivery Note Procedure Delivery date: 08/22/23 Events: Preeclampsia w/o severe features and Other (GBS unknown, AMA, depression/anxiety on medications) Induction method: Per Misoprostol Protocol Delivery augmentation: Rupture of Membranes and Pitocin Delivery monitor: External FHT and Internal Uterine Route of delivery: Episiotomy description: None Laceration Description: None Specimen: Yes (placenta) Quantitative Blood Loss (ml): 100 Anesthesia type: Epidural Disposition: Floor Complications: No immediate complications Baby Date of : 08/22/23 Time of : 02:52 Weeks of gestation at delivery: 38 (.5) gender: Female Weight (pounds): 6 Weight (ounces): 7 presentation: vertex position: Left Occiput Transverse Placenta delivery description: Expressed Cord Vessel Description: 3 Vessels and Delayed Cord Clamping score one minute: 7 score five minutes: 8 score ten minutes: 8 Narrative: Marissa rapidly progressed to complete dilation with strong desire to push. She pushed for approximately 10 minutes with good maternal effort. She delivered the head over intact perineum. No nuchal cord was palpated. She easily delivered the infant's shoulders and body without complication. The infant was immediately placed skin to skin. Delayed cord clamping was performed. The umbilical cord was doubly clamped and cut. Minimal cry was heard, so baby was taken to the warmer for further stimulation. A segment of the cord was collected for cord gases. The remaining cord blood was collected for typing. With Pitocin running and gentle downward traction the cord, placenta delivered without complications. She was examined and no lacerations were identified. She remained firm with minimal bleeding. Sponge, lap, instrument, and needle counts were correct at the end of the procedure. Mom and baby were left bonding in the birthing suite in stable condition. [facility] Delivery Billing Delivery Delivery: Delivery Charge
[2023-08-22] MEDS: OXYTOCIN 30 UNITS/NS 500 ML 30 UNITS/500 ML BAG 125 UNITS IV CONT (03:34)
[2023-08-22] MEDS: IBUPROFEN 600 MG TABLET PO ×2 (08:49→17:02)
[2023-08-22] MEDS: MULTIVIT/MIN/PREN/FOL AC/IRON TABLET 1 TAB PO (08:49)
[2023-08-22] MEDS: DOCUSATE SODIUM 100 MG CAPSULE PO ×2 (08:49→17:02)
[2023-08-22] MEDS: PANTOPRAZOLE 40 MG TABLET PO ×2 (08:50→21:30)
[2023-08-22] MEDS: ESCITALOPRAM OXALATE 10 MG TABLET PO (08:50)
--- NOTE | 2023-08-22 12:22 | PM.OBPNVD ---
OB - PN: Subj Subjective Date/time seen: 08/22/23 12:22 Narrative: PPD#0 Marissa reports doing well today. 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 Her pain is controlled. She is tolerating regular diet, voiding, passing gas, and ambulating without issues. She is attempting to breast feed; daughter hasn't been latching well. OB - PN: Obj Data Labs 08/21/23 09:07 08/21/23 09:07 Labs: Laboratory Results - last 24 hr 08/21/23 09:07 RPR Non-reactive OB - PN A/P Assessment and Plan (1) Normal vaginal delivery of first : Code(s): O80 - Encounter for full-term uncomplicated delivery Status: Acute (2) Pre-eclampsia: Qualifiers: Trimester: third trimester Qualified Code(s): O14.93 - Unspecified pre-eclampsia, third trimester Code(s): O14.90 - Unspecified pre-eclampsia, unspecified trimester Status: Acute (3) UTI (urinary tract infection): Code(s): N39.0 - Urinary tract infection, site not specified Status: Acute Plan day: 0 Plan: routine care Comments: - Continue PO pain meds - Regular diet - Ambulation and hydration encouraged - BPs normal - Continue breast feeding - Bactrim DS BID x 3 days Time Spent With Patient Time: Total time spent is greater than 50% in coordination of care (as documented) at patient's floor/unit and/or counseling patient: Review of Systems Constitutional: Constitutional: Denies chills, Denies fever(s) and Denies headache(s) Eyes: Eyes: Denies change in vision ENT: Denies dizziness and Denies headache(s) Cardiovascular: Cardiovascular: Denies chest pain, Denies palpitations and Denies dyspnea Respiratory: Respiratory: Denies cough and Denies dyspnea Gastrointestinal: Gastrointestinal: Denies nausea and Denies vomiting Neurologic: Denies dizziness and Denies headache(s) Endocrine: Endocrine: Denies palpitations Exam Const: General: cooperative, comfortable and no acute distress Orientation/consciousness: patient oriented x3 Resp: Effort & Inspection: normal respiratory effort Auscultation: clear to auscultation bilaterally Cardio: Rate: regular rate GI: Inspection: non-distended GI Palp: No abdominal tenderness and Yes Soft to palpation Auscultation: normal bowel sounds : Other: fundus firm Skin: General skin exam: normal color Neuro: General: patient oriented x3 Extrem: General: normal to inspection Psych: Appearance: grossly normal Affect: normal affect Attitude: cooperative
--- NOTE | 2023-08-22 12:45 | PC.NURSE ---
1245 RN in room to do assessment, pt due for her Wellbutrin, she requested to take it @ 1400 with her next dose of PO antibiotics that are due.
--- NOTE | 2023-08-22 16:15 | PC.NURSE ---
[id number] Introductions were made, then consulted with patient to assess needs related to . Mother led the conversation with her?plans to feed?her infant and the?experience so far. Encouraged understanding of the benefits of skin to skin (demonstrating unwrapping and placing upright on her chest), stimulating with massage touch, changing positions to encourage wakefulness, how to watch for early feeding cues, responsive feeding, feeding on demand (aiming for 8-12 times in 24 hours, about every 2-3 hours), milk production, building/maintaining a milk supply, duration of feeding, signs of adequate intake/output and how to record on the feeding sheet. Mother works well with her with encouragement and education. Reviewed positioning and ear, shoulder, hip alignment, supporting the breast to facilitate a deep latch where the nipple everts softly rather than tucks into the breast. Encouraged asymmetrical latch (off-center), leading with the chin with a big, open, wide gape and body close to mother. Infant latched optimally to the right breast in cross cradle/laid-back position unable to maintain latch past a few sucks. is disorganized and tongue sucks on the nipple at times. Father of baby shared that infant was [id number] after delivery, then to the warmer for 10-20 minutes, then back to [id number] for one hour. is alert, quiet and awake with feeding cues yet doesn't maintain the latch. is less than 12 hours old. There are small linear bruises to mothers areolas from earlier experience. Reviewed comfort measures of healing with a warm, wet washcloth to rinse breast, then leave open to air-dry, good handwashing when or touching the breast/nipples to prevent infection. Mother voiced understanding of skin to skin, stimulating with massage touch, responsive feedings, hand expressed colostrum, talking to to encourage if it has been 2 -2.5 hours since the start of the last , to call if does not latch, or if there is discomfort with . Inpatient/outpatient resources provided with name written on the communication board. Parents voiced understanding of information, demonstrated learning and will call if there is a request for assistance. Reported to the Primary RN. [phone] Reviewed earlier education along with hand expression with minimal EBM. Infant demonstrates the ability to latch effectively but doesn't maintain. is almost 12 hours old. Encouraged protecting the milk supply with hand expression and offering the breast frequently every 2-3 hours. Reported to the Primary RN.
[2023-08-22] MEDS: ACETAMINOPHEN 325 MG TABLET 650 MG PO (20:00)
[2023-08-22] MEDS: ESCITALOPRAM OXALATE 5 MG TABLET PO (21:30)
[2023-08-23 03:30] VITALS: BP 120/72; PULSE 76
[2023-08-23] MEDS: IBUPROFEN 600 MG TABLET PO ×3 (03:30→15:28)
[2023-08-23] MEDS: SULFAMETHOXAZOLE/TRIMETHOPRIM 800/160 MG DS TABLET 1 TAB PO ×2 (03:30→15:29)
[2023-08-23] MEDS: buPROPion HCL SR (12HR) 100 MG TABCR 200 MG PO ×2 (03:30→15:29)
[2023-08-23 03:43] LABS: Hemoglobin 11.8 g/dL (12.0-15.0)
[2023-08-23 07:30] VITALS: BP 110/64; PULSE 78; RESP 18; TEMP 36.8; O2SAT 100
--- NOTE | 2023-08-23 08:34 | PM.OBDSVD ---
DS: Admitting Diagnosis Discharge Date 08/23/23 Admitting Diagnosis intrauterine at term preeclampsia w/o severe features DS: Discharge Diagnosis Discharge Diagnosis (1) Normal vaginal delivery: Code(s): O80 - Encounter for full-term uncomplicated delivery Status: Acute OB - DS: Summary OB Procedures : None OB Procedures Intrapartum: Spontaneous Vag Delivery OB Procedures: : None Peripartum Data Laceration Description: None Episiotomy description: None Status at Discharge Functional status at discharge: independent ambulation Overall status at discharge: patient is back to baseline Time Spent with Patient Time attestation: Total time spent providing and/or coordinating discharge services: Time spent: Less than 30 minutes Exam Const: General: comfortable and no acute distress Resp: Effort & Inspection: normal respiratory effort Auscultation: clear to auscultation bilaterally Cardio: Rate: regular rate GI: GI Palp: Yes Soft to palpation Auscultation: normal bowel sounds Other: Fundus firm below umbilicus Psych: Appearance: grossly normal Mental Status: mental status grossly normal Affect: normal affect DS: Data Data Completed and Pending Pending studies at discharge: Pending at discharge 08/22/23 15:20 Surgical [PTH] Routine Labs on day of discharge: Labs from last 24 hours 08/23/23 03:37 Hgb 11.8 L Hct 39.0 Discharge Plan Discharge Attending physician on discharge: Stephanie Oglesby Discharging Clinician: Stephanie Oglesby Anticipated Discharge Date/Time: 08/24/23 10:00 Patient Disposition: Home, Self-Care Activity: may shower and pelvic rest Diet: as tolerated and regular Patient Instructions: Vaginal Delivery (DC) Stand Alone Forms: General Discharge Information Follow-up/Referrals: Stephanie Oglesby MD [Physician] - 4 Weeks Discharge Medications: New acetaminophen 325 mg Tablet 650 mg PO Q6H PRN (Reason: Mild Pain (1-3) Or Headache) Qty: 100 0RF docusate sodium 100 mg Capsule 100 mg PO BID PRN (Reason: Constipation) Qty: 100 0RF ibuprofen 600 mg Tablet 600 mg PO Q6H PRN (Reason: Cramping) Qty: 50 0RF sulfamethoxazole-trimethoprim 800-160 mg Tablet 1 tab PO Q12HR Qty: 2 0RF bupropion HCl [Wellbutrin SR] 100 mg Tablet Sustained-Release 12 Hr 200 mg PO Q12HR 90 Days Qty: 360 0RF Continued escitalopram oxalate 5 mg tablet 5 mg PO HS escitalopram oxalate 10 mg tablet 10 mg PO DAILY Classic 28 mg iron- 800 mcg tablet 1 tablet PO DAILY omeprazole 40 mg capsule,delayed release(DR/EC) 40 mg PO DAILY Rx Instructions: TAKE 1 CAPSULE BY MOUTH DAILY gabapentin 300 mg capsule 300 mg PO BID PRN (Reason: Pain) cetirizine 10 mg Tablet 10 mg PO DAILY PRN (Reason: allergies) Discontinued aspirin [Adult Low Dose Aspirin] 81 mg tablet,delayed release (DR/EC) 81 mg PO BID bupropion HCl 200 mg tablet sustained-release 12 hr 300 mg PO BID Date of admission: 08/21/23 08:41 Primary Care Provider: Janna Peres Admitting Provider: Stephanie Oglesby Attending physician on admission: Stephanie Oglesby Condition: Stable
--- NOTE | 2023-08-23 08:54 | WPDANLDPN2 ---
Anes-Prog Note L&D Date/Time: 08/23/23 08:54 Comfortable throughout: labor and delivery Neuraxial method: epidural Epidural/Spinal procedure site: tender Neuro status: Neuro function grossly intact. Vital Signs: Last Vital Signs Temp 37.3 C 08/22/23 20:00 Pulse 76 08/23/23 03:30 Resp 18 08/22/23 20:00 BP 120/72 08/23/23 03:30 Pulse Ox 98 08/22/23 12:33 O2 Del Method Room Air 08/22/23 20:00 Pain score (VAS): 210 I/O: Intake & Output 08/22/23 08/23/23 08/23/23 23:59 07:59 15:59 Intake Total 1200 Output Total 1000 2340 Balance -1000 -1140 Patient feedback: Patient satisfied with anesthetic care.
[2023-08-23] MEDS: MULTIVIT/MIN/PREN/FOL AC/IRON TABLET 1 TAB PO (09:26)
[2023-08-23] MEDS: ESCITALOPRAM OXALATE 10 MG TABLET PO (09:27)
[2023-08-23] MEDS: PANTOPRAZOLE 40 MG TABLET PO ×2 (09:27→20:50)
--- NOTE | 2023-08-23 11:33 | PC.NURSE ---
[id number] Consulted with patient to assess needs related to after RN reports mother decided to bottle feed through the night and breastfeed during the day. Discussed with mother her successes, concerns and any questions she has along with reviewing milk production. We discuss risks, benefits, and possible consequences of decisions based on mother stating she desires to only breastfeed. Parent shared they just finished giving a formula bottle and pumping. Initial bottle was given related to low blood sugar. Breast pump provided yesterday evening due to ineffective . Instructions given on cleaning, care, usage, that there should be no pain, pumping schedule for milk production, collection, and storage of human milk. We reviewed spoon/syringe/paced bottle feeding as options and how they may help or hinder her journey. Mother states infant is more awake today. Mother voiced understanding of the education shared along with mom/baby guide and the pump measurement, flange fit handout for additional resource information and mother points to the correct fitting picture along with denying pain with pumping. Nipple care reviewed with optimal latch, good positioning and using clean hands when touching her breast. Resources used to facilitate learning were used from the visual handouts/ tool/mom and baby guide. Parents voiced understanding of the education shared, to call for assistance if the infant does not latch, questions, concerns or if there is discomfort with .
[2023-08-23 12:42] VITALS: BP 125/74; PULSE 82; RESP 16; TEMP 36.8; O2SAT 100
[2023-08-23 15:33] VITALS: BP 114/62; PULSE 81; RESP 16; TEMP 36.4; O2SAT 98
[2023-08-23 20:15] VITALS: BP 116/58; PULSE 80; RESP 18; TEMP 36.5; O2SAT 100
[2023-08-23] MEDS: ESCITALOPRAM OXALATE 5 MG TABLET PO (20:49)
[2023-08-24] MEDS: SULFAMETHOXAZOLE/TRIMETHOPRIM 800/160 MG DS TABLET 1 TAB PO (03:49)
[2023-08-24] MEDS: buPROPion HCL SR (12HR) 100 MG TABCR 200 MG PO (03:49)
[2023-08-24 04:28] VITALS: BP 117/76
[2023-08-24 08:00] VITALS: PULSE 79; RESP 18; O2SAT 100
[2023-08-24 09:25] VITALS: BP 120/69; PULSE 79; RESP 18; TEMP 36.9; O2SAT 100
[2023-08-24] MEDS: PANTOPRAZOLE 40 MG TABLET PO (10:13)
[2023-08-24] MEDS: IBUPROFEN 600 MG TABLET PO (10:13)
[2023-08-24] MEDS: TETANUS,DIPHTHERIA,AC PERTUSSIS ADULT (0.5 ML) BOOSTRIX IM (10:13)
[2023-08-24] MEDS: MULTIVIT/MIN/PREN/FOL AC/IRON TABLET 1 TAB PO (10:13)
[2023-08-24] MEDS: ESCITALOPRAM OXALATE 10 MG TABLET PO (10:13)
--- NOTE | 2023-08-24 12:07 | PC.NURSE ---
Patient viewed the discharge video Mother & Baby Care, The First Two Weeks . Patient was given the opportunity and encouraged to ask questions. Patient verbalized understanding of information shared and has been given the mother/baby guide for home reference.
[2023-08-25 16:08] VITALS: BP 122/70; PULSE 81; RESP 18; TEMP 36.8; O2SAT 98
== END 2023-08-24 12:42 | disposition home or self-care (01) | DRG 806 ==
LOC: ANHOB2 08-24 11:58 → ANHLDR 08-25 09:12 → ANHOB2 08-25 09:12
PROVIDERS: Admitting Provider Obstetrics & Gynecology; PCP Nurse Practitioner Family; Visit Provider Student in an Organized Health Care Education/Training Program
DX: O14.04 Mild to moderate pre-eclampsia, complicating childbirth (principal); N39.0 Urinary tract infection, site not specified; Z37.0 Single live birth; O75.3 Other infection during labor; O99.344 Other mental disorders complicating childbirth; Z3A.38 38 weeks gestation of pregnancy
CPT/HCPCS: 36415; 80053; 84550; 85014; 85018; 85025; 86592; 86850; 86900; 86901; 88307; 90715; A9270; J0290; J2405; J2590; J2795; J7120

== ENCOUNTER 2023-11-29 14:38 | Outpatient (CLI) | payer BC, SELFPAY ==
[2023-11-29 15:39] LABS: Hematocrit 39.7 % (37.0-47.0); Hemoglobin 13.3 g/dL (12.0-15.0); Mean Corpuscular HGB Conc 33.5 g/dl (32-36); Mean Corpuscular Hemoglobin 28.5 pg (26-34); Mean Corpuscular Volume 85.2 fl (80-100); Mean Platelet Volume 8.8 fl (7.4-10.4); Platelet Count Result 286 k/mm3 (150-375); Red Blood Count 4.66 M/mm3 (4.2-5.4); Red Cell Distribution Width 13.9 % (11.5-14.5); White Blood Count 6.5 K/mm3 (4.5-10.0)
== END 2023-11-29 14:39 | disposition home or self-care (01) ==
LOC: ANHSURGERY 14:41
PROVIDERS: PCP Nurse Practitioner Family; Visit Provider Obstetrics & Gynecology
DX: Z01.818 Encounter for other preprocedural examination (principal)
CPT/HCPCS: 36415; 85027

== ENCOUNTER 2023-11-30 00:27 | Day surgery (SDC) | payer BC, SELFPAY ==
[2023-11-28 10:25] VITALS: BMI 26.6
--- NOTE | 2023-11-28 10:30 | PC.NURSE ---
Report to the Outpatient Waiting Room, entrance under the green pavilion located off [facility], at time _0630_ on date _[id number]_. Planned Procedure Time: _0830_. Time changes happen often and if your time is changed the preop area will call you the afternoon before. - You and your visitor will be asked to self-screen and do not enter if you have any COVID symptoms. - A mask is optional within the hospital at this time. Patients may have clear liquids (water, carbonated beverages, clear teas, apple juice) until 3 hours prior to surgery with a maximum of 20 ounces. - No food from midnight until time of surgery Take the following medications with a SIP of water the morning of surgery: ___Escitalopram and Bupropion DO NOT STOP ANY OF YOUR OTHER PRESCRIPTION MEDICATIONS PRIOR TO SURGERY ?EXCEPT THE FOLLOWING Medications to discontinue per physician ___Vitamin Date to take last dose__Stop now. Please no make-up, nail faroese, hairspray, perfume, deodorant, or body powder the day of surgery. No jewelry (including any body piercings) or valuables the day of surgery, leave them at home. Please take a shower or bath the night before, or the morning of, surgery with an antibacterial soap. Wear comfortable, loose fitting clothing. - Jewelry must be removed prior to entering the operating room. Rings and piercings that are not removed may be cut off. - The hospital will not accept responsibility for valuables. - Please leave all valuables, including medications, at home the day of surgery. If you are going home after surgery, a licensed catshovel driver must drive you home. - NO public transportation without another adult if you receive anesthesia. - We recommend that an adult stay with you for 24 hours following discharge. - We also recommend that you do not drive, make important decision, drink alcoholic beverages, or take any drugs that were not prescribed by your health care provider for at least 24 hours after your discharge time. Follow any additional instructions given to you from your surgeon. If you or anyone in your household have experienced Covid symptoms in the past week, please notify your surgeon or the nurse liaison at the phone number below for possible testing. Telephone instructions given to _Kelly__and asked if any additional questions and then verbalized understanding. Patient advised to call surgeon office or pre surgery nurse liaison [phone] if any additional questions.
--- NOTE | 2023-11-29 13:47 | WPDANESEPPF ---
Anes - Initial Pre Proc Eval Procedure: Operation Date: 11/30/23 07:30 Proposed Procedures p Bilateral Laparoscopic Salpingectomy - Johnson Morris MD Date/Time: 11/29/23 13:47 Surgeon: Johnson Morris MD Pre Op Diagnosis: desires sterilization Patient Data Age: 38 Gender: F Height: 1.7 m Weight: 77.3 kg Allergies Allergy/AdvReac Type Severity Reaction Status Date / Time prednisone AdvReac Mild Didn't Verified 11/28/23 10:23 like taking it, makes her angry Home Medications Medication Instructions Recorded Confirmed Type escitalopram oxalate 5 mg tablet 5 mg PO HS 02/21/23 11/28/23 History escitalopram oxalate 10 mg tablet 10 mg PO DAILY 04/19/23 11/28/23 History vits no.126-ferrous fum 1 tablet PO DAILY 05/17/23 11/28/23 History 28 mg iron-folic acid 800 mcg tablet (Classic ) cetirizine 10 mg tablet 10 mg PO DAILY PRN allergies 07/16/23 11/28/23 History gabapentin 300 mg capsule 300 mg PO BID PRN Pain 07/16/23 11/28/23 History omeprazole 40 mg capsule,delayed 40 mg PO DAILY 08/17/23 11/28/23 History release bupropion HCl 100 mg tablet,12 hr 200 mg PO Q12HR 90 days #360 tabs 08/22/23 11/28/23 Rx sustained-release (Wellbutrin SR) norethindrone (contraceptive) 0.35 0.35 mg PO DAILY #84 tabs 09/27/23 11/28/23 Rx mg tablet Patient hx anesthesia problems: none Family hx anesthesia problems: none Results Review: All pre-operative results and documents have been reviewed as part of the pre-operative evaluation. [facility] Past Medical History Medical History Abnormal glucose tolerance in Anxiety Depression Eosinophilic esophagitis Esophageal ring Suppression of menses Family History Family History Father Diabetes mellitus Mother Cancer Depression Anxiety Social History Social History Social History: No current alcohol intake or substance use since test resulted positive 01/13/23 Years smoked: 1 Smoking status: Former smoker Tobacco type: cigarettes Smoking end date: 11/27/05 Alcohol intake: current Drinks per week: 3 Alcohol use details: glass of wine at night Substance use: never Substance use type: marijuana Other substance usage details: 3 times a week. Do You Feel Safe in your Home?: Yes Lack of Transportation: No Lack of Food: Never True Current Housing: I Have Housing Concerned About Future Housing: No Difficulty Paying Gas/Electric Bills: No Difficulty Paying for Meds: No Currently Unemployed: No Education: Associate Degree Difficulty w/ Childcare or Family Care: No Living arrangements: with family Occupation/Education: occupation Spiritual care concerns: No Anes - Eval Final PreProcedure Day of Procedure Patient weight: overweight Heart: regular rate and rhythm Lungs: clear to auscultation Airway: Mallampati scale class II Neurological: alert and oriented Last oral intake: >/= 8 hours ASA classification: II Emergent: no Anesthetic plan: proceed Anesthesia type and monitoring: general ETT and standard monitoring
--- NOTE | 2023-11-29 14:39 | PM.IMHP ---
H&P: HPI History of Present Illness Date/Time: 11/29/23 14:39 38-year-old 1 para 1001 female presents for permanent sterilization. She understands that it is permanent, history is risk of regret and ectopic are discussed. Also irreversibility stressed. Chief Complaint: Undesired fertility Review of Systems Review of Systems: All systems reviewed & are unremarkable except as noted in HPI and below PMFSH Past Medical History Medical History Abnormal glucose tolerance in Anxiety Depression Eosinophilic esophagitis Esophageal ring Suppression of menses Family History Family History Father Diabetes mellitus Mother Cancer Depression Anxiety Social History Social History Social History: No current alcohol intake or substance use since test resulted positive 01/13/23 Years smoked: 1 Smoking status: Former smoker Tobacco type: cigarettes Smoking end date: 11/27/05 Alcohol intake: current Drinks per week: 3 Alcohol use details: glass of wine at night Substance use: never Substance use type: marijuana Other substance usage details: 3 times a week. Do You Feel Safe in your Home?: Yes Lack of Transportation: No Lack of Food: Never True Current Housing: I Have Housing Concerned About Future Housing: No Difficulty Paying Gas/Electric Bills: No Difficulty Paying for Meds: No Currently Unemployed: No Education: Associate Degree Difficulty w/ Childcare or Family Care: No Living arrangements: with family Occupation/Education: occupation Spiritual care concerns: No Meds Home Medications and Allergies Home Medications Medication Instructions Recorded Confirmed Type escitalopram oxalate 5 mg tablet 5 mg PO HS 02/21/23 11/28/23 History escitalopram oxalate 10 mg tablet 10 mg PO DAILY 04/19/23 11/28/23 History vits no.126-ferrous fum 1 tablet PO DAILY 05/17/23 11/28/23 History 28 mg iron-folic acid 800 mcg tablet (Classic ) cetirizine 10 mg tablet 10 mg PO DAILY PRN allergies 07/16/23 11/28/23 History gabapentin 300 mg capsule 300 mg PO BID PRN Pain 07/16/23 11/28/23 History omeprazole 40 mg capsule,delayed 40 mg PO DAILY 08/17/23 11/28/23 History release bupropion HCl 100 mg tablet,12 hr 200 mg PO Q12HR 90 days #360 tabs 08/22/23 11/28/23 Rx sustained-release (Wellbutrin SR) norethindrone (contraceptive) 0.35 0.35 mg PO DAILY #84 tabs 09/27/23 11/28/23 Rx mg tablet Allergies Allergy/AdvReac Type Severity Reaction Status Date / Time prednisone AdvReac Mild Didn't Verified 11/28/23 10:23 like taking it, makes her angry Exam Const: General: cooperative Nutritional Appearance: average body habitus Limitations: no limitations Resp: Effort & Inspection: normal respiratory effort Auscultation: clear to auscultation bilaterally Cardio: Rate: regular rate Rhythm: regular rhythm GI: Inspection: normal to inspection Auscultation: normal bowel sounds : External Female Exam: normal external appearance Speculum Exam - Vagina: normal appearance of the vagina Speculum Exam - Cervix: normal appearance of the cervix Bimanual exam- vagina & uterus: normal bimanual exam Bimanual Exam- Adnexa, other: normal adnexae Assessment and Plan Assessment and plan (1) Encounter for female sterilization procedure: Code(s): Z30.2 - Encounter for sterilization Status: Acute Assessment and Plan: proceed with laparoscopic bilateral salpingectomy
[2023-11-30] VITALS (10 sets, daily range): BP systolic 95–138; BP diastolic 54–83; PULSE 52–74; RESP 12–16; TEMP 36.1–36.4; O2SAT 93–100
[2023-11-30] MEDS: LACTATED RINGERS 1,000 ML 30 ML IV CONT ×2 (06:35→08:46)
[2023-11-30] MEDS: KETOROLAC 15 MG/ML VIAL (*BKC) IV PUSH (06:36)
[2023-11-30] MEDS: ACETAMINOPHEN 500 MG TABLET 1000 MG PO (06:36)
--- NOTE | 2023-11-30 07:11 | WPDHPUPDATE1 ---
History and Physical Update Update Date/Time: 11/30/23 07:11 History and Physical has been reviewed, including an updated exam of the patient. There are NO changes in the patient's condition. Risks, benefits, and alternatives have been discussed and questions answered. Patient agrees to proceed with procedure.
--- NOTE | 2023-11-30 07:56 | W.PM.PROC2 ---
Procedure Note - Detailed Date of Procedure 11/30/23 Pre-op Diagnosis desires sterilization Post-op Diagnosis Same Procedure Performed Laparoscopic bilateral salpingectomy Surgeon Johnson Morris MD Anesthesia General Findings Uterus tubes ovaries without abnormality Description of Procedure Patient prepped and draped in usual manner for this procedure. Cervical instruments were placed for uterine mobility throughout case. Abdominal trocar sites were then marked and trocars were placed under direct visualization. Using the LigaSure on the mesial salpinx bilaterally the tubes removed without difficulty. There was no bleeding, gas was allowed to escape, incisions proximally using a 4-0 Monocryl. Patient was sent to recovery room in stable condition. Estimated Blood Loss 10 Drains No Packing No Pathology Yes Complications No immediate complications Condition Stable Disposition PACU [facility] Billing Surgery - Charge Forward: Surgery Billing
[2023-11-30] MEDS: fentaNYL CITRATE INJ (*CRX) 100 MCG/2 ML VIAL 25 MCG IV PUSH ×3 (08:43→08:50)
[2023-11-30] MEDS: oxyCODONE HCL (*CRX) 5 MG TAB IR PO (10:00)
== END 2023-11-30 10:40 | disposition home or self-care (01) ==
PROVIDERS: PCP Nurse Practitioner Family; Visit Provider Obstetrics & Gynecology
PROC: (CPT 49320; principal; 2023-11-30 07:30)
DX: Z30.2 Encounter for sterilization (principal); F41.9 Anxiety disorder, unspecified; F32.A Depression, unspecified; Z87.891 Personal history of nicotine dependence; F12.90 Cannabis use, unspecified, uncomplicated
CPT/HCPCS: 58661; 88302; A9270; J1170; J1885; J2250; J2405; J2704; J3010; J7030; J7120; Q9968